=== PATIENT | male | born 1985 ===

== ENCOUNTER 2016-10-16 03:12 | Emergency (ER) | payer OTHER ==
[2016-10-16 03:19] VITALS: BP 133/84; PULSE 88; RESP 15; TEMP 98.1; O2SAT 100
[2016-10-16] MEDS ORDERED: TDAP Vaccine 0.5 mL Syr IM ONE (03:35)
[2016-10-16] MEDS ORDERED: Sodium Chloride 0.9% 1,000 ML IV SCH (03:45)
[2016-10-16 03:50] LABS: RBC URINE 1 /hpf (0-3); URINE BILIRUBIN NEGATIVE (NEGATIVE); URINE BLOOD SMALL (NEGATIVE); URINE COLOR COLORLESS (YELLOW); URINE GLUCOSE (UA) NEG (Normal); URINE KETONE NEGATIVE (NEGATIVE); URINE LEUKOCYTE ESTERASE NEG Leu/uL (Negative); URINE PROTEIN NEGATIVE (NEGATIVE); URINE UROBILINOGEN 0.2-1.0 mg/dL (0.2-1.0)
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
[2016-10-16 04:19] LABS: BASO % 1.3 % (0.0-2.0); EOS # 0.1 K/uL (0.0-0.7); EOS % 3.3 % (0.0-4.0); HEMATOCRIT 43.1 % (35.0-51.0); LYMPH # 0.8 K/uL (1.0-4.3); LYMPH % 20.3 % (20.0-40.0); MEAN CELL VOLUME 95.8 fl (80.0-94.0); MEAN CORPUSCULAR HEMOGLOBIN 33.2 pg (27.0-31.0); MEAN CORPUSCULAR HGB CONC 34.7 g/dL (33.0-37.0); MEAN PLATELET VOLUME 8.1 fl (7.2-11.7); MONO # 0.4 K/uL (0.0-0.8); MONO % 10.7 % (0.0-10.0); NEUT # 2.5 K/uL (1.8-7.0); NEUT % 64.4 % (50.0-75.0); NRBC % 0.1 % (0.0-0.0); RED CELL DISTRIBUTION WIDTH 13.2 % (11.5-14.5); WHITE BLOOD COUNT 3.9 K/uL (4.8-10.8)
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
[2016-10-16 04:27] LABS: ALB/GLOB RATIO 1.7 (1.0-2.1); ALKALINE PHOSPHATASE 75 U/L (38-126); ALT/SGPT 95 U/L (21-72); AST/SGOT 85 U/L (17-59); BILIRUBIN,TOTAL 1.1 mg/dl (0.2-1.3); BLOOD UREA NITROGEN 10 mg/dl (9-20); CALCIUM 10.2 mg/dL (8.4-10.2); CARBON DIOXIDE 23 mmol/L (22-30); CHLORIDE 101 mmol/L (98-107); GFR AFRICAN-AMERICAN > 60; GLUCOSE,RANDOM 102 mg/dL (75-110); POTASSIUM 3.2 MMOL/L (3.6-5.0); SODIUM 145 mmol/l (132-148); TOTAL PROTEIN 8.9 G/DL (6.3-8.2)
[2016-10-16] MEDS ORDERED: Iohexol 300 100 ML IJ ONE (04:50)
[2016-10-16] MEDS ORDERED: Sodium Chloride 0.9% 50 ML IV ONE (04:50)
[2016-10-16 04:52] LABS: ALCOHOL SERUM 331 mg/dl (0-10)
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
[2016-10-16] MEDS ORDERED: Sodium Chloride 0.9% 1,000 ML IV STA (05:43)
--- NOTE | 2016-10-16 06:11 | ED PDOC ---
- Laboratory Results Result Diagrams: 10/16/16 04:16 10/16/16 04:16 - ECG O2 Sat by Pulse Oximetry: 100 (RA) Pulse Ox Interpretation: Normal Medical Decision Making Medical Decision Making: Time: 06:00 --Transfer from Al Lezama PA-C. --Pending sobriety. Time: 07:00 --Transfer of care to Dr. Nguyễn. Disposition - Clinical Impression Clinical Impression: Scalp laceration, Laceration of auricle of left ear, Alcohol intoxication, Abdominal contusion - POA Present On Arrival: None - Disposition Referrals: [facility] [Outside] Disposition: Routine/Home (To Dr. Nguyễn) Disposition Time: 07:00 Condition: IMPROVED Additional Instructions: keep wounds clean with soap and water. glue should fall off on its own in about on week. staple can be removed in 5 days by pmd. return sooner for worsening symptoms. Instructions: Laceration (ED), Head Injury (ED), Alcohol Intoxication (ED) Print Language: HEBREW
--- NOTE | 2016-10-16 06:14 | ED PDOC ---
- Laboratory Results Result Diagrams: 10/16/16 04:16 10/16/16 04:16 - ECG O2 Sat by Pulse Oximetry: 100 (RA) Pulse Ox Interpretation: Normal Medical Decision Making Medical Decision Making: Time: 07:00 --Transfer of care from Dr. Warner pending sobriety Scribe Attestation: Documented by Zainab Valentine acting as a scribe for Adriana Nguyễn MD MD Scribe Attestation: All medical record entries made by the Scribe were at my direction and personally dictated by me. I have reviewed the chart and agree that the record accurately reflects my personal performance of the history, physical exam, medical decision making, and the department course for this patient. I have also personally directed, reviewed, and agree with the discharge instructions and disposition. Disposition - Clinical Impression Clinical Impression: Scalp laceration, Laceration of auricle of left ear, Alcohol intoxication, Abdominal contusion - POA Present On Arrival: Falls Or Trauma - Disposition Referrals: [facility] [Outside] Disposition: Routine/Home Disposition Time: 14:54 Condition: IMPROVED Additional Instructions: keep wounds clean with soap and water. glue should fall off on its own in about on week. staple can be removed in 5 days by pmd. return sooner for worsening symptoms. Instructions: Laceration (ED), Head Injury (ED), Alcohol Intoxication (ED) Print Language: AFGHAN
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
== END 2016-10-16 18:05 | disposition home or self-care (01) ==
LOC: H.ER 03:12
DX: S01.01XA Laceration without foreign body of scalp, initial encounter (principal); S01.312A Laceration without foreign body of left ear, initial encounter; F10.129 Alcohol abuse with intoxication, unspecified; S30.1XXA Contusion of abdominal wall, initial encounter; Y04.2XXA Assault by strike against or bumped into by another person, initial encounter

== ENCOUNTER 2017-01-03 13:06 | Emergency (ER) | payer OTHER ==
[2017-01-03 13:11] VITALS: RESP 16
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
[2017-01-03 16:50] VITALS: BP 123/74; PULSE 75; TEMP 97.7; O2SAT 100
== END 2017-01-03 16:48 | disposition home or self-care (01) ==
LOC: H.ER 13:06
DX: F10.10 Alcohol abuse, uncomplicated (principal)

== ENCOUNTER 2017-10-12 13:01 | Emergency (ER) | payer OTHER ==
[2017-10-12] MEDS ORDERED: Sodium Chloride 0.9% 1,000 ML IV STA (13:19)
[2017-10-12 13:38] LABS: BASO # 0.1 K/uL (0.0-0.2); BASO % 3.4 % (0.0-2.0); EOS # 0.2 K/uL (0.0-0.7); HEMOGLOBIN 16.3 g/dL (12.0-18.0); LYMPH # 1.1 K/uL (1.0-4.3); LYMPH % 24.9 % (20.0-40.0); MEAN CELL VOLUME 91.5 fl (80.0-94.0); MEAN CORPUSCULAR HEMOGLOBIN 32.4 pg (27.0-31.0); MEAN CORPUSCULAR HGB CONC 35.4 g/dL (33.0-37.0); MEAN PLATELET VOLUME 7.8 fl (7.2-11.7); MONO # 0.3 K/uL (0.0-0.8); MONO % 7.2 % (0.0-10.0); NEUT # 2.6 K/uL (1.8-7.0); NEUT % 59.5 % (50.0-75.0); NRBC % 0.2 % (0.0-0.0); PLATELET COUNT 154 K/uL (130-400); RBC 5.01 Mil/uL (4.40-5.90); RED CELL DISTRIBUTION WIDTH 13.4 % (11.5-14.5); WHITE BLOOD COUNT 4.4 K/uL (4.8-10.8)
[2017-10-12] MEDS ORDERED: Sodium Chloride 0.9% 50 ML IV ONE (13:52)
[2017-10-12] MEDS ORDERED: Iohexol 300 100 ML IJ ONE (13:52)
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
[2017-10-12 13:59] LABS: ALB/GLOB RATIO 1.2 (1.0-2.1); ALT/SGPT 102 U/L (21-72); AST/SGOT 134 U/L (17-59); BLOOD UREA NITROGEN 10 mg/dl (9-20); CALCIUM 9.3 mg/dL (8.4-10.2); GFR AFRICAN-AMERICAN > 60; GFR NON-AFRICAN AMERICAN > 60; PARTIAL THROMBOPLASTIN TIME 34.2 Seconds (25.6-37.1); PROTHROMBIN TIME 10.8 Seconds (9.8-13.1)
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
[2017-10-12 14:32] LABS: BASOPHIL 2 % (0-2); EOSINOPHIL 4 % (0-7); LYMPHOCYTE 19 % (20-50); MONOCYTE 2 % (0-10); NEUTROPHIL 69 % (42-75); PLATELET ESTIMATE NORMAL (NORMAL); REACTIVE LYMPHOCYTES 4 % (0-0); TOTAL CELLS COUNTED 100
[2017-10-12 14:33] LABS: ANISOCYTOSIS SLIGHT; LARGE PLATELETS PRESENT; OVALOCYTES SLIGHT; TEARDROP CELLS SLIGHT
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
[2017-10-12] MEDS ORDERED: Potassium Chloride 20 mEq ER Tab PO ONE (17:56)
[2017-10-12 18:00] VITALS: O2SAT 98
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
[2017-10-13 05:54] VITALS: BP 139/73; PULSE 82; RESP 18; TEMP 98.7
== END 2017-10-13 06:09 | disposition home or self-care (01) ==
LOC: H.ER 13:01
DX: F10.129 Alcohol abuse with intoxication, unspecified (principal); S00.03XA Contusion of scalp, initial encounter; R07.89 Other chest pain; Y04.0XXA Assault by unarmed brawl or fight, initial encounter; Y92.89 Other specified places as the place of occurrence of the external cause; E86.0 Dehydration
CPT/HCPCS: 70450; 71260; 72125; 73562; 74177; 80053; 80320; 85025; 85610; 85730; 99285; J1885; J7040; Q9967

== ENCOUNTER 2017-10-14 18:07 | Emergency (ER) | payer OTHER ==
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
[2017-10-15 04:55] VITALS: TEMP 98
--- NOTE | 2017-10-15 05:57 | ED PDOC ---
- ECG O2 Sat by Pulse Oximetry: 98 Pulse Ox Interpretation: Normal Medical Decision Making Medical Decision Making: Endorsed pending sobriety. Pt monitored overnight. Sleeping, NAD. 0600 - Clear speech and steady gait. (Martha Barron) Disposition - POA Present On Arrival: None - Disposition Disposition: Routine/Home Disposition Time: 06:00 - Clinical Impression Clinical Impression: Alcohol abuse with intoxication - Disposition Condition: STABLE Instructions: Effects of Alcohol on Your Health Forms: [facility] (Malaysian)
[2017-10-15 06:55] VITALS: BP 132/74; PULSE 74; RESP 16; O2SAT 97
== END 2017-10-15 06:30 | disposition home or self-care (01) ==
LOC: H.ER 18:07
DX: F10.129 Alcohol abuse with intoxication, unspecified (principal); Y90.8 Blood alcohol level of 240 mg/100 ml or more; Y92.480 Sidewalk as the place of occurrence of the external cause

== ENCOUNTER 2018-03-12 10:18 | Emergency (ER) | payer OTHER ==
[2018-03-12 12:03] LABS: BASO # 0.1 K/uL (0.0-0.2); EOS # 0.1 K/uL (0.0-0.7); EOS % 2.1 % (0.0-4.0); HEMOGLOBIN 16.1 g/dL (12.0-18.0); LYMPH # 0.8 K/uL (1.0-4.3); LYMPH % 20.2 % (20.0-40.0); MEAN CELL VOLUME 95.4 fl (80.0-94.0); MEAN CORPUSCULAR HGB CONC 35.6 g/dL (33.0-37.0); MEAN PLATELET VOLUME 7.5 fl (7.2-11.7); MONO # 0.2 K/uL (0.0-0.8); MONO % 6.3 % (0.0-10.0); NEUT # 2.6 K/uL (1.8-7.0); NEUT % 68.4 % (50.0-75.0); NRBC % 0.1 % (0.0-0.0); RBC 4.74 Mil/uL (4.40-5.90); RED CELL DISTRIBUTION WIDTH 13.1 % (11.5-14.5); WHITE BLOOD COUNT 3.8 K/uL (4.8-10.8)
[2018-03-12 12:06] LABS: URINE BILIRUBIN NEGATIVE (NEGATIVE); URINE BLOOD NEGATIVE (NEGATIVE); URINE CLARITY CLEAR (Clear); URINE COLOR STRAW (YELLOW); URINE GLUCOSE (UA) NEG (Normal); URINE LEUKOCYTE ESTERASE NEG Leu/uL (Negative); URINE PROTEIN 30 mg/dL (NEGATIVE); URINE UROBILINOGEN 0.2-1.0 mg/dL (0.2-1.0)
[2018-03-12 12:23] LABS: BARBITURATES, UR NEGATIVE (NEGATIVE); BENZODIAZEPINES, UR NEGATIVE (NEGATIVE); OPIATES, UR NEGATIVE (NEGATIVE); PHENCYCLIDINE, UR NEGATIVE (NEGATIVE)
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
[2018-03-12 12:53] LABS: ALB/GLOB RATIO 1.3 (1.0-2.1); ALBUMIN 4.7 g/dL (3.5-5.0); ALT/SGPT 60 U/L (21-72); AST/SGOT 70 U/L (17-59); BLOOD UREA NITROGEN 10 mg/dl (9-20); CALCIUM 9.1 mg/dL (8.4-10.2); GFR NON-AFRICAN AMERICAN > 60
[2018-03-12] MEDS ORDERED: Multivitamin (MVI) 10 ML, Thiamine 100 MG, Folic Acid 1 MG in Dextrose 5%/0.45% NS 1,00... IV ONE (13:06)
[2018-03-12] MEDS ORDERED: Sodium Chloride 0.9% 1,000 ML IV STA (13:06)
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
--- NOTE | 2018-03-12 16:29 | CARD ---
APPROVED REPORT Date of service: 03/12/2018 EKG Measurement Heart [id number] <Conclusion> Normal sinus rhythm Normal ECG
[2018-03-12 19:41] VITALS: RESP 18
[2018-03-12 22:06] VITALS: BP 134/76; PULSE 88; TEMP 98.9; O2SAT 99
== END 2018-03-12 21:20 | disposition home or self-care (01) ==
LOC: H.ER 10:18
DX: F10.129 Alcohol abuse with intoxication, unspecified (principal); Y90.8 Blood alcohol level of 240 mg/100 ml or more
CPT/HCPCS: 71045; 80053; 80320; 80324; 80345; 80346; 80349; 80353; 80358; 80361; 81003; 83992; 84484; 85025; 93005; 96360; 99284; J3411; J7030; J7042

== ENCOUNTER 2018-08-24 15:17 | Emergency (ER) | payer OTHER ==
[2018-08-24 15:20] VITALS: RESP 18; O2SAT 99
[2018-08-24] MEDS ORDERED: Tdap Vaccine 0.5 ml Vial (10-64 yrs) IM ONE ×2 (15:42→17:52)
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
[2018-08-24 16:52] LABS: BASO # 0.1 K/uL (0.0-0.2); EOS # 0.1 K/uL (0.0-0.7); EOS % 3.1 % (0.0-4.0); HEMOGLOBIN 14.9 g/dL (12.0-18.0); LYMPH # 0.8 K/uL (1.0-4.3); LYMPH % 19.9 % (20.0-40.0); MEAN CELL VOLUME 91.9 fl (80.0-94.0); MEAN CORPUSCULAR HEMOGLOBIN 31.9 pg (27.0-31.0); MEAN CORPUSCULAR HGB CONC 34.7 g/dL (33.0-37.0); MEAN PLATELET VOLUME 7.9 fl (7.2-11.7); MONO # 0.4 K/uL (0.0-0.8); MONO % 9.4 % (0.0-10.0); NEUT # 2.5 K/uL (1.8-7.0); NEUT % 65.6 % (50.0-75.0); NRBC % 0.2 % (0.0-0.0); RBC 4.69 Mil/uL (4.40-5.90); RED CELL DISTRIBUTION WIDTH 14.3 % (11.5-14.5); WHITE BLOOD COUNT 3.8 K/uL (4.8-10.8)
[2018-08-24 17:07] LABS: BARBITURATES, UR NEGATIVE (NEGATIVE); BENZODIAZEPINES, UR NEGATIVE (NEGATIVE); OPIATES, UR NEGATIVE (NEGATIVE); PHENCYCLIDINE, UR NEGATIVE (NEGATIVE)
[2018-08-24 17:07] LABS: ALB/GLOB RATIO 1.6 (1.0-2.1); ALT/SGPT 48 U/L (21-72); AST/SGOT 62 U/L (17-59); BLOOD UREA NITROGEN 9 mg/dl (9-20); CALCIUM 9.5 mg/dL (8.4-10.2); GFR NON-AFRICAN AMERICAN > 60
[2018-08-24] MEDS ORDERED: Potassium Chloride 20 mEq ER Tab PO STA (17:41)
[2018-08-24] MEDS ORDERED: Potassium Chloride 20 mEq ER Tab PO ONE ×2 (18:19→18:24)
[2018-08-24 20:26] VITALS: BP 128/84; PULSE 88; TEMP 98.4
--- NOTE | 2018-08-25 10:43 | RAD ---
PROCEDURE: Right Hand Radiographs. HISTORY: trauma COMPARISON: None. TECHNIQUE: 3 views obtained. FINDINGS: BONES: No acute fracture or destructive bony lesion identified. Questionable old healed fracture 1st metacarpal bone. JOINTS: Normal. No osteoarthritic changes. SOFT TISSUES: Normal. OTHER FINDINGS: None. IMPRESSION: Questionable old healed fracture 1st metacarpal bone versus congenital deformity distally. No acute fracture dislocation right hand. No retained radiodense foreign body appreciable.
== END 2018-08-24 20:25 | disposition home or self-care (01) ==
LOC: H.ER 15:17
DX: S00.83XA Contusion of other part of head, initial encounter (principal); S09.90XA Unspecified injury of head, initial encounter; S69.91XA Unspecified injury of right wrist, hand and finger(s), initial encounter; Y04.0XXA Assault by unarmed brawl or fight, initial encounter; Y92.89 Other specified places as the place of occurrence of the external cause; F10.129 Alcohol abuse with intoxication, unspecified; E87.6 Hypokalemia

== ENCOUNTER 2018-09-10 18:18 | Emergency (ER) | payer OTHER ==
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
[2018-09-10 19:32] LABS: BASO # 0.1 K/uL (0.0-0.2); BASO % 3.7 % (0.0-2.0); EOS # 0.1 K/uL (0.0-0.7); EOS % 2.4 % (0.0-4.0); HEMOGLOBIN 16.1 g/dL (12.0-18.0); LYMPH % 33.1 % (20.0-40.0); MEAN CELL VOLUME 93.1 fl (80.0-94.0); MEAN CORPUSCULAR HEMOGLOBIN 32.2 pg (27.0-31.0); MEAN CORPUSCULAR HGB CONC 34.5 g/dL (33.0-37.0); MEAN PLATELET VOLUME 7.3 fl (7.2-11.7); MONO # 0.3 K/uL (0.0-0.8); MONO % 8.5 % (0.0-10.0); NEUT # 1.6 K/uL (1.8-7.0); NEUT % 52.3 % (50.0-75.0); NRBC % 0.1 % (0.0-0.0); PLATELET COUNT 164 K/uL (130-400); RBC 5.02 Mil/uL (4.40-5.90); RED CELL DISTRIBUTION WIDTH 14.3 % (11.5-14.5)
[2018-09-10 20:20] LABS: BLOOD UREA NITROGEN 7 mg/dl (9-20); CALCIUM 9.2 mg/dL (8.4-10.2); GFR NON-AFRICAN AMERICAN > 60
[2018-09-10 21:11] LABS: EOSINOPHIL 2 % (0-7); LYMPHOCYTE 35 % (20-50); MONOCYTE 7 % (0-10); NEUTROPHIL 56 % (42-75); PLATELET ESTIMATE NORMAL (NORMAL); TOTAL CELLS COUNTED 100
[2018-09-10 21:12] LABS: ANISOCYTOSIS SLIGHT
[2018-09-11 00:25] VITALS: RESP 16
--- NOTE | 2018-09-11 02:30 | ED PDOC ---
- Laboratory Results Result Diagrams: 09/10/18 19:25 09/10/18 19:25 - ECG O2 Sat by Pulse Oximetry: 100 - Other Rad xray right knee X-Ray: Viewed By Me X-Ray Interpretation: no acute findings xray left shoulder X-Ray: Viewed By Me X-Ray Interpretation: no acute findingfs - Progress ED Course And Treament: Case endorsed to contract technical writer from [facility] MAN[facility]LL[facility] pending CT, xray's, sobriety CT SCAN OF THE BRAIN WITHOUT IV CONTRAST CLINICAL INDICATION: Fall. TECHNIQUE: Axial and reformatted sagittal and coronal images of the brain obtained without IV contrast administration. Normal size of the ventricles and extra-axial spaces for the patient's age. Normal white matter tracts of the supratentorial brain. Normal basal ganglia and thalami. Normal brainstem. Normal cerebellum. There is no demonstrated extra-axial, intraparenchymal, or intraventricular hemorrhage. There are no findings of an acute ischemic infarction. Normal calvarium. There is no demonstrated fracture. Normal soft tissue structures. Moderate chronic mucosal inflammatory changes of the visualized paranasal sinuses. IMPRESSION: Normal unenhanced CT scan of the brain. Moderate chronic mucosal inflammatory changes of the visualized paranasal sinus es 1:30 Patient sleeping, no distress 3:00 Patient sleeping, no distress 4:30 Patient awake, alert, oriented x3. Ambulating steady gait. Vitals stable Patient educated on findings (via Colby Vargas analytical laboratory technician/certified site interpreter), EFREM wrap applied to right knee Advised RICE. NSAIDs, Tylenol PRN pain Follow up PMD within 2-3 days Return precautions given Disposition - Clinical Impression Clinical Impression: Alcohol intoxication, Thumb pain, Shoulder pain, left, Right knee injury - POA Present On Arrival: Falls Or Trauma - Disposition Referrals: Sheila Mckeon MD [Staff Provider] - [facility] [Outside] Orth[facility] at [Outside] Disposition: Routine/Home Disposition Time: 04:37 Condition: STABLE Instructions: Alcohol Abuse and Alcoholism (DC), Shoulder Pain (DC), Sprained Thumb, Knee Pain Forms: [employer] (Wallisian) Print Language: TURKMEN
[2018-09-11 04:40] VITALS: BP 138/81; PULSE 89; TEMP 97.9; O2SAT 97
--- NOTE | 2018-09-11 10:13 | CT ---
Date of service: 09/11/2018 PROCEDURE: CT HEAD WITHOUT CONTRAST. HISTORY: fall while intoxicated COMPARISON: None available. TECHNIQUE: Axial computed tomography images were obtained through the head/brain without intravenous contrast. Radiation dose: Total exam DLP = 779.15 mGy-cm. This CT exam was performed using one or more of the following dose reduction techniques: Automated exposure control, adjustment of the mA and/or kV according to patient size, and/or use of iterative reconstruction technique. FINDINGS: HEMORRHAGE: No intracranial hemorrhage. BRAIN: No mass effect or edema. No atrophy or chronic microvascular ischemic changes. VENTRICLES: Unremarkable. No hydrocephalus. CALVARIUM: Unremarkable. PARANASAL SINUSES: Chronic sphenoid, ethmoid and bilateral maxillary sinusitis. MASTOID AIR CELLS: Unremarkable as visualized. No inflammatory changes. OTHER FINDINGS: None. IMPRESSION: Chronic paranasal sinusitis. No intracranial hemorrhage. Otherwise unremarkable examination.
--- NOTE | 2018-09-11 13:09 | RAD ---
Date of service: 09/10/2018 PROCEDURE: Right Thumb radiographs. HISTORY: Right thumb pain x 3 days COMPARISON: 08/24/2018 TECHNIQUE: AP radiograph of the right hand, as well as spot oblique and lateral images of thumb were obtained. 3 views obtained. FINDINGS: RIGHT THUMB: Stable deformity right 1st metacarpal. No new/acute findings or interval changes. Remainder of the right hand (as seen on the AP view) grossly unremarkable. JOINTS: Normal. SOFT TISSUES: Normal. OTHER FINDINGS: None. IMPRESSION: No acute findings related to/ accounting for the clinical presentation. Additional benign and/or incidental findings described above. No significant interval change compared to the prior examination(s).
--- NOTE | 2018-09-11 13:14 | RAD ---
Date of service: 09/11/2018 PROCEDURE: Right Knee Radiographs. HISTORY: fall with right knee pain COMPARISON: 10/12/2017 TECHNIQUE: 2 views obtained. FINDINGS: BONES: Normal. No fracture. JOINTS: Normal. No osteoarthritis. JOINT EFFUSION: None. OTHER FINDINGS: None. IMPRESSION: Normal radiographs of the right knee.
--- NOTE | 2018-09-11 13:14 | RAD ---
Date of service: 09/11/2018 PROCEDURE: Radiographs of the Left Shoulder HISTORY: left shoulder pain after fall. COMPARISON: No prior. TECHNIQUE: 3 views obtained. FINDINGS: BONES: Normal. No fracture. JOINTS: Normal. Glenohumeral and acromioclavicular joints preserved. No osteoarthritis. SOFT TISSUES: Normal. OTHER FINDINGS: None. IMPRESSION: Normal radiographs of the left shoulder.
== END 2018-09-11 04:38 | disposition home or self-care (01) ==
LOC: H.ER 18:18
DX: F10.129 Alcohol abuse with intoxication, unspecified (principal); M79.644 Pain in right finger(s); M25.512 Pain in left shoulder; Y90.8 Blood alcohol level of 240 mg/100 ml or more; S89.91XA Unspecified injury of right lower leg, initial encounter

== ENCOUNTER 2018-10-09 18:12 | Emergency (ER) | payer OTHER ==
[2018-10-09 18:19] VITALS: PULSE 81; TEMP 98.8; O2SAT 100
--- NOTE | 2018-10-09 18:52 | ED PDOC ---
HPI: Psych/Substance Abuse Time Seen by Provider: 10/09/18 18:33 Chief Complaint (Nursing): Alcohol Ingestion Chief Complaint (Provider): Alcohol Ingestion History Per: Patient, EMS History/Exam Limitations: no limitations Current Symptoms Are (Timing): Still Present Additional Complaint(s): 33 year old male presents to the ED via EMS for alcohol intoxication. Patient admits to drinking beers, stating he has been for the past two days. Denies any physical complaints or trauma. Past Medical History Reviewed: Historical Data, Nursing Documentation, Vital Signs Vital Signs: Last Vital Signs Temp 98.8 F 10/09/18 18:14 Pulse 81 10/09/18 18:14 Resp 16 10/09/18 18:14 BP 137/94 H 10/09/18 18:14 Pulse Ox 100 10/09/18 18:14 Primary Care Provider: FAMILY PROVIDER,NO - Medical History PMH: No Chronic Diseases - Surgical History Surgical History: No Surg Hx - Family History Family History: States: Unknown Family Hx - Social History Current smoker - smoking cessation education provided: No Alcohol: Other (hx of abuse) Drugs: Denies - Immunization History Hx Tetanus Toxoid Vaccination: No - Home Medications Home Medications: Ambulatory Orders Medication Instructions Recorded Unobtainable 10/12/17 - Allergies Allergies/Adverse Reactions: Allergies Allergy/AdvReac Type Severity Reaction Status Date / Time No Known Allergies Allergy Verified 10/09/18 18:20 Review of Systems ROS Statement: Except As Marked, All Systems Reviewed And Found Negative Psych: Positive for: Other (etoh use) Physical Exam - Reviewed Nursing Documentation Reviewed: Yes Vital Signs Reviewed: Yes - Physical Exam Appears: Positive for: No Acute Distress (but appears intoxicated) Head Exam: Positive for: ATRAUMATIC, NORMOCEPHALIC Cardiovascular/Chest: Positive for: Regular Rate, Rhythm Respiratory: Positive for: Normal Breath Sounds. Negative for: Respiratory Distress Neurological/Psych: Positive for: Awake, Alert - ECG O2 Sat by Pulse Oximetry: 100 (RA) Pulse Ox Interpretation: Normal Medical Decision Making Medical Decision Making: Time: 1836 Initial Impression: etoh abuse Initial Plan: --Accucheck --Pending clinical sobriety accucheck noted 91 mg/dl pt. ambulating with a strong steady gait at d/c. pt. will be d/c home and will f/u with detox at [facility]. Scribe Attestation: Documented by Francisca Franklin, acting as a scribe for Tasha Muro PA-C. Provider Scribe Attestation: All medical record entries made by the Scribe were at my direction and personally dictated by me. I have reviewed the chart and agree that the record accurately reflects my personal performance of the history, physical exam, medical decision making, and the department course for this patient. I have also personally directed, reviewed, and agree with the discharge instructions and disposition. Disposition - Clinical Impression Clinical Impression: Alcohol abuse with alcohol-induced disorder, Alcohol intoxication - Patient ED Disposition Is Patient to be Admitted: No - Disposition Disposition: Routine/Home Disposition Time: 19:38 Condition: GOOD Additional Instructions: f/u with detox at [facility] in two days. Instructions: Alcohol Use - When Is Drinking a Problem?, Alcohol Abuse and Alcoholism (DC) Forms: [employer] (Bahraini)
[2018-10-09 20:08] VITALS: BP 119/69; RESP 93
== END 2018-10-09 19:55 | disposition home or self-care (01) ==
LOC: H.ER 18:12
DX: F10.29 Alcohol dependence with unspecified alcohol-induced disorder (principal); F10.129 Alcohol abuse with intoxication, unspecified